=== PATIENT | female | born 1970 | race Caucasian/White ===

== ENCOUNTER → 2016-11-15 | Outpatient (CLI) | payer OTHER ==
--- NOTE | 2016-11-15 13:21 | RAD ---
APPROVED REPORT Test Type: Exercise Stress Nurse/Tech: Marry Ivy R.N. Test Indications: cp Cardiac History: none Medications: anxiety meds Medical History: none Resting ECG: sr Resting Heart Rate: 65 bpm Resting Blood Pressure: 116/49mmHg Pretest Chest Pain: No chest pain Nurse/Tech Notes lungs cta, heart tones regular, good radial pulse Consent: The procedure was explained to the patient in lay terms. Informed consent was witnessed. Jerry eout was entered into [employer]. History and Stress Test performed by Marry Ivy R.N. Stress Symptoms No chest pain or symptoms. POST EXERCISE Reason for Termination: Reached target heart rate Target HR: Yes Max HR: 163 bpm 94% of Maximum Predicted HR: 173 bpm Exercise duration: 8:21 min:sec, 3 Stage Exercise capacity: 10.0METs Max Blood Pressure: 158/78mmHg Blood Pressure response to exercise: Normal blood pressure response during stress. Heart Rate response to exercise: normal Chest Pain: No. Arrhythmia: No. baseline very wavy, hard to interpret ST Change: Yes. ST depression in II, avf, v2-6 during recovery, v leads recovered to baseline at end of recovery INTERPRETATION Stress EKG Conclusion: The resting EKG shows a sinus rhythm with mild nonspecific ST-T wave changes. The stress EKG shows no significant changes from baseline. No EKG evidence of stress-induced ischemia. Imaging Protocol IMAGE PROTOCOL: Rest Tc-99m/stress Tc-99m 1 day Rest: Stress: Viability: Radiopharm.Tc99m [id number] Sestamibi Dose12.4mCi 33.6mCi Img Date 11/15/2016 11/15/2016 Inj-Img [id number]. 60min. Rest Admin Site:IV - Right AntecubitalAdministrator:CHRIST Chandler Stress Admin Site: IV - Right AntecubitalAdministrator: KALEB Stoner, ARRT (R)(N) STRESS DATA End Diast. Vol.90.0mlAv. Heart Rate87.0bpm End Syst. Vol.13.0mlCO Index BSA0.0L/min Myocardial Vqih433.0gEject. Rmzjomgw34.0% Stress Rates Pk. Fill Rate3.31EDV/secLVtime Pk. Fill 114.95msec Pk. Empty Rate3.95ESV/secLVtime Pk. Ypqfb014.76msec 08/01 Pk. Fill2.12EDV/sec Stress Scores Regional WT0.00Summed WT0.00 Regional WM0.00Summed WM0.00 LV Perfusion The stress scans showed no significant defects. The rest scans showed no significant defects. Nuclear imaging shows no reversible ischemia or infarct. Wall Motion Normal left ventricular systolic function with an ejection fraction of greater than 70%. LV Perf. Quant 17 Seg. SSS0.00 17 Seg. SRS2.00 17 Seg. SDS0.00 Stress Defect Extent (% LAD)0.00Rest Defect Extent (% LAD)1.30Rev. Defect Extent (% LAD)0.00 Stress Defect Extent (% LCX) 0.00Rest Defect Extent (% LCX)15.00Rev. Defect Extent (% LCX)0.00 Stress Defect Extent (% RCA)0.00Rest Defect Extent (% RCA)0.00Rev. Defect Extent (% RCA)0.00 Stress Defect Extent (% PRINCE)0.00Rest Defect Extent (% PRINCE)4.30Rev. Defect Extent (% PRINCE)0.00 Conclusion 1. Good exercise tolerance. 2. No chest pain with exertion. 3. No EKG evidence of stress-induced ischemia. 4. Nuclear imaging shows no reversible ischemia or infarct. 5. Normal left ventricular systolic function with an ejection fraction of greater than 70%. 6. Low risk treadmill nuclear stress test.
== END | disposition home or self-care (01) ==
LOC: NM 08:12
PROVIDERS: ATTEND Internal Medicine Cardiovascular Disease
DX: R07.9 Chest pain, unspecified (principal)
CPT/HCPCS: 78452; 93017; 96374; 96376; A9500

== ENCOUNTER → 2020-09-13 | Outpatient (CLI) | payer BC, OTHER ==
--- NOTE | 2020-09-13 15:51 | KCIC ---
EXAM: Brain MRI without contrast. HISTORY: Migraine. TECHNIQUE: Multiplanar, multisequence magnetic resonance imaging of the brain was performed without c ontrast. COMPARISON: None. FINDINGS: There is no restricted diffusion to suggest acute or subacute infarction. There is no mass effect or midline shift. There is no hydrocephalus. There are few tiny foci of signal change within t he cerebral white matter. There is a linear branching T2 hypointense lesion within the left cerebellu m, the appearance of which favors a developmental venous anomaly. The orbits are unremarkable. There is mild paranasal sinus mucosal thickening. The mastoid air cells are clear. There are normal flow vo ids within the cerebral vessels. There is no suspicious calvarial lesion. IMPRESSION: 1. No acute intracranial finding. 2. Few tiny foci of signal change within the cerebral white matter. This is nonspecific and can be se en with the reported history of chronic migraine headaches. The possibility of changes due to chronic small vessel disease can also be considered. 3. 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 Electronically signed by: Payton Holt MD (09/13/2020 3:48 PM) [id number]
== END ==
LOC: KCIC MRI 15:01
PROVIDERS: ATTEND Psychiatry & Neurology Neurology with Special Qualifications in Child Neurology
DX: G43.019 Migraine without aura, intractable, without status migrainosus (principal); H53.8 Other visual disturbances; G51.32 Clonic hemifacial spasm, left; R42 Dizziness and giddiness
CPT/HCPCS: 70551